=== PATIENT | female | born 1990 | race Caucasian/White ===

== ENCOUNTER 2019-09-18 00:56 | Inpatient (IN) | payer OTHER ==
[2019-09-18] VITALS (52 sets, daily range): BP systolic 82–134; BP diastolic 53–966; PULSE 54–100; TEMP 97.9–98.6
[~2019-09-18] VITALS: Ht 170.2 cm; Wt 73.2 kg
--- NOTE | 2019-09-18 00:38 | NUR ---
HERE WITH SPOUSE - STATES CONTRACTIONS SUDDENLY STARTED AT 2100 LAST NITE. STRONG AT ONSET. EFM SVE. / INTACT GBS NEG. VERY UNCOMFORTBALE WITH CONTRACTIONS. PAIN IN BACK AND LOWER ABD.
[2019-09-18] MEDS ORDERED: PRENATAL MVI (01:11)
[2019-09-18 03:08] LABS: BASO # 0.1 (0.0-0.2); BASO % 0.4 % (0.0-2.0); EOS # 0.1 (0.0-0.7); EOS % 0.4 % (0-4.0); GRAN # 8.8 (1.4-6.5); GRAN % 72.6 % (42.2-75.2); HEMOGLOBIN 12.3 g/dl (12.5-16.0); LYMPH # 2.2 (1.2-3.4); LYMPH % 18.2 % (20.0-51.0); MEAN CELL VOLUME 95 fl (80.0-100.0); MEAN CORPUSCULAR HEMOGLOBIN 32 pg (27.0-31.0); MEAN CORPUSCULAR HGB CONC 34 g/dl (33.0-37.0); MEAN PLATELET VOLUME 13.1 fl (7.4-10.4); MONO % 8.1 % (1.7-9.3); PLATELET COUNT 144 K/mm3 (130-400); RED BLOOD COUNT 3.83 M/mm3 (4.10-5.30); REDCELL DISTRIBUTION WIDTH-CV 12.6 % (11.5-14.5)
[2019-09-18 03:10] LABS: HEMATOCRIT 36.5 % (37.0-47.0)
--- NOTE | 2019-09-18 04:18 | NUR ---
BECOMING MORE UNCOMFORTABLE WITH CTXS. EPIDRUAL OPTIONS DISCUSSED. WILL LET NURSE KNOW WHEN SHE IS READY
--- NOTE | 2019-09-18 04:50 | NUR ---
REQUESTS EPIDURAL Priscilla COPPOLA CALLED TO INSERT. ONTO BIRTHING BALL AFTER VOID
--- NOTE | 2019-09-18 07:40 | NUR ---
HEART TONES AUDIBLE IN 80-90S. 6 MINUTE PROLONGED DECEL. PATIENT RL, TO KNEE CHEST. DR KRAUS NOTIFIED.
--- NOTE | 2019-09-18 15:00 | NUR ---
PATIENT PUSHING FROM [id number] KRAUS. TO MOTHERS CHEST IN CARE OF HERIBERTO GOLDBERG AND HERIBERTO SHERMAN PLAC SPON DELIVERED AT 1503. OXYTOCIN 333 MLS/ HR. FUNDAL MASSAGE PROVIDED. 2ND DEGREE REPAIRED BY DR KRAUS. ICE PACK TO PERINEUM. RECOVERY STARTED AT 1530.
--- NOTE | 2019-09-18 18:20 | NUR ---
Assisted into wheelchair, baby placed in her arms. Off unit and out of hospital, by staff for hospital evacuation. at pt's side.
--- NOTE | 2019-09-18 18:36 | NUR ---
Back into hospital and onto unit via wheelchair. Assited back into bed. continues with pt.
[2019-09-19 02:30] VITALS: BP 113/71; PULSE 67; TEMP 98.7
[2019-09-19 07:04] LABS: HEMATOCRIT 29.9 % (37.0-47.0); HEMOGLOBIN 10.2 g/dl (12.5-16.0)
[2019-09-19 08:25] VITALS: BP 117/56; PULSE 78; TEMP 97.6
[2019-09-19 16:35] VITALS: BP 114/68; PULSE 82; TEMP 98
[2019-09-19 21:12] VITALS: BP 112/63; PULSE 65; TEMP 97.8
[2019-09-20 08:05] VITALS: BP 108/76; PULSE 85; TEMP 97.6
[2019-09-20] MEDS ORDERED: IBU600 MG PO (08:22)
== END 2019-09-20 12:55 | disposition home or self-care (01) | DRG 807 ==
LOC: LDRO 00:56 → OB 02:16 → LDR 02:16 → OB 17:35
PROVIDERS: Obstetrics & Gynecology; ADMIT Obstetrics & Gynecology
PROC: 10E0XZZ Delivery of Products of Conception, External Approach (ICD-10-PCS; principal; 2019-09-18)
PROC: 0KQM0ZZ Repair Perineum Muscle, Open Approach (ICD-10-PCS; 2019-09-18)
PROC: 10907ZC Drainage of Amniotic Fluid, Therapeutic from Products of Conception, Via Natural or Artificial Opening (ICD-10-PCS; 2019-09-18)
DX: O99.02 Anemia complicating childbirth (principal); Z37.0 Single live birth; O70.1 Second degree perineal laceration during delivery; Z3A.40 40 weeks gestation of pregnancy
CPT/HCPCS: J2590; J2795; J7120